=== PATIENT | female | born 1970 | race Caucasian/White ===

== ENCOUNTER → 2020-02-27 | Outpatient (CLI) | payer OTHER ==
[~2020-02-27] MED LIST: IBUP-1222 PO; LACT1CAP35 PO; MULT-658 PO; OXYC-302 PO
[2020-02-27 11:56] LABS: ANION GAP 5 mmol/L (5-15); CALCIUM 8.8 mg/dL (8.5-10.1); CHLORIDE 109 mmol/L (98-107); CREATININE 0.82 mg/dL (0.55-1.02)
[2020-02-27 12:01] LABS: BASOPHILS # (AUTO) 0.04 x10^3/uL (0-0.1); BASOPHILS % (AUTO) 1 % (0-1); EOSINOPHILS # (AUTO) 0.07 x10^3/uL (0-0.4); EOSINOPHILS % (AUTO) 1 % (1-7); LYMPHOCYTES # (AUTO) 1.88 x10^3/uL (1-3.4); LYMPHOCYTES % (AUTO) 23 % (22-44); MD NO; MEAN CORPUSCULAR HEMOGLOBIN 31.5 pg (27.0-34.8); MEAN CORPUSCULAR HGB CONC 33.5 g/dL (32.4-35.8); MEAN CORPUSCULAR VOLUME 94.1 fL (80-100); MEAN PLATELET VOLUME 7.9 fL (7.4-10.4); MONOCYTES # (AUTO) 0.59 x10^3/uL (0.2-0.8); MONOCYTES % (AUTO) 7 % (2-9); NEUTROPHILS # (AUTO) 5.65 x10^3/uL (1.8-6.8); NEUTROPHILS % (AUTO) 69 % (42-75); PLATELET COUNT 350 x10^3/uL (130-400); RED BLOOD COUNT 4.76 x10^6/uL (3.82-5.3); RED CELL DISTRIBUTION WIDTH 12.9 % (9.6-15.2)
== END | disposition home or self-care (01) ==
LOC: STAR 10:57
PROVIDERS: ATTEND Obstetrics & Gynecology Maternal & Fetal Medicine
DX: Z01.818 Encounter for other preprocedural examination (principal); N92.0 Excessive and frequent menstruation with regular cycle
CPT/HCPCS: 36415; 80048; 84702; 85025

== ENCOUNTER 2020-03-02 13:22 | Observation (INO) | payer OTHER ==
[~2020-03-02] VITALS: Ht 162.6 cm; Wt 83.0 kg
[~2020-03-02 13:22] MED LIST changes: -IBUP-1222 PO; -OXYC-302 PO
[2020-03-02] MEDS ORDERED: LIDOCAINE-MPF 2% ,5ML ONE (13:35)
[2020-03-02] MEDS ORDERED: FENTANYL PF 250 MCG/5ML ONE (13:36)
[2020-03-02] MEDS ORDERED: MIDAZOLAM 1 MG/ML, 2ML ONE (13:36)
[2020-03-02] MEDS ORDERED: SODIUM CHLORIDE 0.9% PF 10ML ONE (13:38)
[2020-03-02] MEDS ORDERED: LACTATED RINGERS 1,000 ML IV SCH (13:51)
[2020-03-02] MEDS ORDERED: CHLORHEXIDINE 15 ML UDC MM STA (13:51)
[2020-03-02] MEDS ORDERED: PROMETHAZINE 25 MG/ML, 1ML IVPush PRN (14:00)
[2020-03-02] MEDS ORDERED: LABETALOL 5MG/ML, 20ML IV PRN (14:00)
[2020-03-02] MEDS ORDERED: EPHEDRINE 50 MG/ML, 1ML IVPush PRN (14:00)
[2020-03-02] MEDS ORDERED: hydrALAzine 20 MG/ML, 1ML IV PRN (14:00)
[2020-03-02] MEDS ORDERED: ONDANSETRON 2MG/ML, 2ML IVPush PRN (14:00)
[2020-03-02] MEDS ORDERED: OXYcodone 5 MG/5 ML ORAL.SOL UDC PO PRN (14:00)
[2020-03-02] MEDS ORDERED: MEPERIDINE/PF 25MG/0.5ML IVPush PRN (14:00)
[2020-03-02] MEDS ORDERED: ACETAMINOPHEN 500 MG TABLET PO ONE (14:00)
[2020-03-02] MEDS ORDERED: FENTANYL PF 100 MCG/2ML IV PRN (14:00)
[2020-03-02] MEDS ORDERED: GABAPENTIN 300 MG CAPSULE PO ONE (14:00)
[2020-03-02] MEDS ORDERED: HYDROmorphone 1 MG/ML, 1ML INJ IVPush PRN (14:00)
[2020-03-02] MEDS ORDERED: FLUORESCEIN SODIUM 500 MG/5 ML ONE (14:45)
[2020-03-02] MEDS ORDERED: BUPIVACAINE/PF-EPI 0.25% 1:200K ONE (14:45)
[2020-03-02 14:46] LABS: HCG UR SG 1.025 (1.003-1.030)
[2020-03-02] MEDS ORDERED: NEOSPORIN OINT, 15GM ONE (15:10)
[2020-03-02] MEDS ORDERED: CEFAZOLIN 1,000 MG ONE (15:50)
[2020-03-02] MEDS ORDERED: DEXAMETHASONE 4 MG/ML, 1ML ONE (15:50)
[2020-03-02] MEDS ORDERED: KETOROLAC 30 MG/1 ML ONE (15:50)
[2020-03-02] MEDS ORDERED: ROCURONIUM 10MG/ML,5ML ONE (15:50)
[2020-03-02] MEDS ORDERED: ONDANSETRON 2MG/ML, 2ML ONE (15:50)
[2020-03-02] MEDS ORDERED: SUCCINYLCHOLINE 20 MG/ML, 10ML ONE (15:50)
[2020-03-02] MEDS ORDERED: PROPOFOL 10 MG/ML, 20ML ONE (15:50)
[2020-03-02] MEDS ORDERED: SUGAMMADEX 200 MG/2 ML IVPush ONE (15:50)
[2020-03-02] MEDS ORDERED: OXYcodone 5 MG/5 ML ORAL.SOL UDC ONE (18:03)
[2020-03-02] MEDS ORDERED: MEPERIDINE/PF 25MG/ML,1ML ONE (18:35)
[2020-03-02] MEDS ORDERED: morphine SULFATE 10 MG/ML, 1ML IV PRN (19:30)
[2020-03-02] MEDS: LACTATED RINGERS 1,000 ML IV SCH (19:30)
[2020-03-02] MEDS: SIMETHICONE 80 MG CHEW TAB PO SCH (20:46)
[2020-03-02] MEDS: DOCUSATE 100 MG CAPSULE PO SCH (20:46)
[2020-03-02] MEDS: KETOROLAC 30 MG/1 ML IV SCH (22:15)
[2020-03-03] MEDS: OXYcodone/APAP 5/325MG TABLET PO PRN ×4 (00:06→13:19)
[2020-03-03 00:10] VITALS: BP 116/74
[2020-03-03] MEDS: LACTATED RINGERS 1,000 ML IV SCH ×2 (03:30→11:30)
[2020-03-03 04:05] VITALS: BP 108/69
[2020-03-03] MEDS: KETOROLAC 30 MG/1 ML IV SCH ×2 (04:10→09:56)
[2020-03-03 06:54] VITALS: BP 114/72
[2020-03-03] MEDS ORDERED: LACTOBACILLUS CHEW TABLET PO SCH (09:00)
[2020-03-03] MEDS ORDERED: MULTIVITAMIN 1 TABLET PO SCH (09:00)
[2020-03-03] MEDS: DOCUSATE 100 MG CAPSULE PO SCH (09:22)
[2020-03-03] MEDS: SIMETHICONE 80 MG CHEW TAB PO SCH (09:24)
[2020-03-03 12:34] VITALS: BP 128/78
[2020-03-03] MEDS ORDERED: OXYC-302 PO (13:23)
[2020-03-03] MEDS ORDERED: IBUP-1222 PO (13:24)
[2020-03-03] MEDS ORDERED: IBUPROFEN 600 MG TABLET PO SCH (22:00)
== END 2020-03-03 13:50 | disposition home or self-care (01) ==
LOC: OR 13:22 → 4NE 19:00 → OR 19:37 → 4NE 19:38 → DCLOUNGE 03-03 13:46
PROVIDERS: ADMIT Obstetrics & Gynecology; ATTEND Obstetrics & Gynecology Maternal & Fetal Medicine
DX: Z03.818 Encounter for observation for suspected exposure to other biological agents ruled out (principal); N92.1 Excessive and frequent menstruation with irregular cycle; F17.210 Nicotine dependence, cigarettes, uncomplicated; F32.9 Major depressive disorder, single episode, unspecified; G43.909 Migraine, unspecified, not intractable, without status migrainosus
CPT/HCPCS: 36415; 52005; 58301; 58552; 81025; 85014; 85018; 87635; 88307; 96374; 96376; G0378; J0330; J0690; J1100; J1885; J2175; J2250; J2405; J2704; J3010; J3490; J7120

== ENCOUNTER 2020-03-20 09:05 | Outpatient (CLI) | payer OTHER ==
[~2020-03-20 09:05] MED LIST changes: +IBUP-1222 PO; +OXYC-302 PO
== END 2020-03-20 23:59 | disposition home or self-care (01) ==
LOC: CFH 09:05
PROVIDERS: ATTEND Obstetrics & Gynecology Maternal & Fetal Medicine
DX: Z12.31 Encounter for screening mammogram for malignant neoplasm of breast (principal)
CPT/HCPCS: 77067